=== PATIENT | female | born 1990 | race Two or more races ===

== ENCOUNTER 2025-02-21 21:32 | Emergency (ER) | payer OTHER ==
[~2025-02-21] VITALS: Ht 157.5 cm; Wt 75.3 kg
[2025-02-21] MEDS ORDERED: ACETAMINOPHEN500 M1 PO (23:06)
[2025-02-21] MEDS ORDERED: KETOROLAC TROMETHAMINE 60 MG VIAL IM ONE ×2 (23:15→23:26)
== END 2025-02-21 23:50 | disposition home or self-care (01) ==
LOC: ER 21:32
DX: M79.601 Pain in right arm (principal); T50.B95A Adverse effect of other viral vaccines, initial encounter; Y92.89 Other specified places as the place of occurrence of the external cause; Z91.040 Latex allergy status
CPT/HCPCS: 96372; 99282; J1885